=== PATIENT | female | born 1985 | race Caucasian/White ===

== ENCOUNTER 2018-05-25 06:38 | Emergency (ER) | payer OTHER ==
[2018-05-25 06:57] VITALS: O2SAT 96
[2018-05-25] MEDS ORDERED: XYLOCAINE 2% HCL 20 ML MDV ONE ×2 (07:32→07:37)
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
[2018-05-25] MEDS ORDERED: TYLENOL 325 MG PO STA (07:56)
[2018-05-25] MEDS ORDERED: TYLENOL 325 MG ONE (08:00)
[2018-05-25 08:03] VITALS: BP 110/81; PULSE 82
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
== END 2018-05-25 08:13 | disposition home or self-care (01) ==
LOC: ED 06:38
DX: S61.215A Laceration without foreign body of left ring finger without damage to nail, initial encounter (principal); I10 Essential (primary) hypertension; Y08.89XA Assault by other specified means, initial encounter; Z79.899 Other long term (current) drug therapy
CPT/HCPCS: 12001; 73130; 99284; A9270-GY

== ENCOUNTER 2019-08-19 20:36 | Emergency (ER) | payer OTHER ==
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
[2019-08-19 21:04] LABS: Appearance CLOUDY (CLEAR); Bacteria FEW /HPF (NEGATIVE); Bilirubin NEGATIVE (NEGATIVE); Blood SMALL Ery/ul (0-5); Epithelial Cells RARE /HPF (FEW); Glucose NEGATIVE (NEGATIVE); Ketones NEGATIVE (NEGATIVE); Leukocyte Esterase LARGE (NEGATIVE); Mucus SLIGHT /HPF (NEGATIVE); Nitrite NEGATIVE (NEGATIVE); Protein,Urine Dip NEGATIVE (Negative); Specific Gravity 1.029 (1.005-1.025); Urobilinogen NEGATIVE mg/dL (0-1)
[2019-08-19] MEDS ORDERED: Rocephin 1000 MG INJ IM ONE (21:06)
[2019-08-19] MEDS ORDERED: Zithromax 250 MG TABLET PO ONE (21:06)
[2019-08-19] MEDS ORDERED: Zithromax 250 MG TABLET ONE (21:12)
[2019-08-19] MEDS ORDERED: XYLOCAINE 1% HCL 20 ML MDV IJ ONE (21:12)
[2019-08-19] MEDS ORDERED: Rocephin 1000 MG INJ ONE (21:12)
[2019-08-19] MEDS ORDERED: BACTRIM DS TABLET PO STA (21:13)
[2019-08-19] MEDS ORDERED: BACTRIM DS TABLET PO ONE (21:16)
[2019-08-19 21:42] VITALS: BP 136/98; PULSE 101; O2SAT 98
== END 2019-08-19 21:44 | disposition home or self-care (01) ==
LOC: ED 20:36
DX: Z20.2 Contact with and (suspected) exposure to infections with a predominantly sexual mode of transmission (principal); N39.0 Urinary tract infection, site not specified; Z72.0 Tobacco use
CPT/HCPCS: 81001; 87086; 96372; 99284; J0696; A9270-GY

== ENCOUNTER 2019-10-21 05:30 | Emergency (ER) | payer OTHER ==
--- NOTE | 2019-10-21 05:51 | ERPHSYRPT ---
- History of Present Illness Source: patient Exam Limitations: no limitations Timing/Duration: day(s) (5), gradual onset, worse Severity of Dyspnea-Max: moderate Severity of Dyspnea-Current: moderate Possible Cause: no prior episodes Modifying Factors: Improves With: coughing Associated Symptoms: cough, chest pain/discomfort, fever, loss of appetite, weakness, chills Hx Tetanus, Diphtheria Vaccination/Date Given: No Hx Influenza Vaccination/Date Given: No Hx Pneumococcal Vaccination/Date Given: No <EDA MILAN - Last Filed: 10/21/19 06:52> <HEYDI POWERS - Last Filed: 10/21/19 08:54> - History of Present Illness Time Seen by Provider: 10/21/19 05:51 Physician History: This is a 34-year-old white female who smokes has had a history of ovarian cancer in the past and has had a total abdominal hysterectomy. She is had a history of anxiety, migraines, hypertension and rheumatoid arthritis she takes lisinopril for high blood pressure. Patient presents with 5-day history of worsening shortness of breath with associated chills, sweats, headache, myalgias and arthralgias and chest pain. He also has had a cough and weakness and loss of taste and smell. Patient has no known direct exposure with anyone positive for the COVID-19 virus. However, she does work at a [employer] plant and 16 people were sent home and tested for the COVID-19 virus. She does not know the results of those tests. (EDA MILAN) Allergies/Adverse Reactions: Penicillins Allergy (Intermediate, Verified 10/21/19 06:00) Blisters Home Medications: Lisinopril 20 mg [Zestril 20 MG] 20 mg PO DAILY 08/19/19 [History] Travel Risk - International Travel Have you traveled outside of the country in past 3 weeks: No - Coronavirus Screening Are you exhibiting any of the following symptoms?: Yes Symptoms: Fever, Cough: New Onset, Shortness of Breath, Vomiting/Diarrhea, Loss of Taste or Smell, Headaches/Body Aches/Fatigue <EDA MILAN - Last Filed: 10/21/19 06:52> - Review of Systems Constitutional: Fever, Chills, Weakness Eyes: No Symptoms Ears, Nose, & Throat: No Symptoms Respiratory: Cough, Dyspnea, No Stridor, No Wheezing Cardiac: Chest Pain Abdominal/Gastrointestinal: Nausea, Vomiting, No Abdominal Pain, No Diarrhea Genitourinary Symptoms: No Symptoms Musculoskeletal: Arthralgias, Myalgias Skin: No Symptoms Neurological: No Symptoms Psychological: No Symptoms Endocrine: No Symptoms Hematologic/Lymphatic: No Symptoms Immunological/Allergic: No Symptoms All Other Systems: Reviewed and Negative <EDA MILAN - Last Filed: 10/21/19 06:52> - Past Medical History Pertinent Past Medical History: Yes Neurological History: Migraines ENT History: No Pertinent History Cardiac History: Hypertension Respiratory History: No Pertinent History Endocrine Medical History: No Pertinent History Musculoskeletal History: Rheumatoid Arthritis GI Medical History: No Pertinent History History: No Pertinent History Psycho-Social History: Anxiety Female Reproductive Disorders: Other, Ovarian Cancer Other Medical History: OVARIAN CA, HYSTERECTOMY. - Past Surgical History Past Surgical History: Yes Neuro Surgical History: No Pertinent History Cardiac: No Pertinent History Respiratory: No Pertinent History Gastrointestinal: Appendectomy Musculoskeletal: No Pertinent History Female Surgical History: Hysterectomy, Other Other Surgical History: LEFT OVARY REMOVED - Social History Smoking Status: Current every day smoker How long have you smoked: 7 years Exposure to second hand smoke: Yes Drug Use: none Patient Lives Alone: No <EDA MILAN - Last Filed: 10/21/19 06:52> - Physical Exam General Appearance: mild distress, alert, anxiety Eye Exam: PERRL/EOMI, eyes nml inspection Ears, Nose, Throat Exam: hearing grossly normal, normal ENT inspection, normal pharynx Neck Exam: normal inspection, non-tender, supple, full range of motion Respiratory Exam: normal breath sounds, chest tenderness, lungs clear, airway intact, No respiratory distress, No rhonchi, No wheezing, No stridor Cardiovascular/Chest Exam: normal heart sounds, regular rate/rhythm, normal peripheral pulses Abdominal/Gastrointestinal Exam: soft, normal bowel sounds, No tenderness Rectal Exam: not done Extremity Exam: non-tender, normal range of motion, normal inspection Neurologic Exam: alert, oriented x 3, cooperative, corporate compliance director II-XII nml as tested, normal mood/affect, nml cerebellar function, nml station & gait, sensation nml Skin Exam: normal color, warm, dry Lymphatic Exam: No adenopathy SpO2 Interpretation: normal O2 Delivery: Room Air <EDA MILAN - Last Filed: 10/21/19 06:52> - Nursing Vital Signs Nursing Vital Signs: Initial Vital Signs Temperature 97.7 F 10/21/19 05:45 Pulse Rate 75 10/21/19 05:45 Respiratory Rate 18 10/21/19 05:45 Blood Pressure 158/100 10/21/19 05:45 O2 Sat by Pulse Oximetry 97 10/21/19 05:45 Pain Scale Pain Intensity 0 - Course Nursing assessment & vital signs reviewed: Yes EKG Interpreted by Me: RATE (61), Sinus Rhythm, NORMAL AXIS, NORMAL INTERVALS, NORMAL QRS, Other (No comparison EKG available) <EDA MILAN - Last Filed: 10/21/19 06:52> - Radiology Exams Chest X-ray Interpretation: Interpreted by me (No effusion, no infiltrate, no consolidation, normal bony thorax) <HEYDI POWERS - Last Filed: 10/21/19 08:54> Ordered Tests: Active Orders 24 hr Category Date Time Status Radio Interference Supervisor STAT Care 10/21/19 06:32 Active EKG-ER Only STAT Care 10/21/19 06:29 Active ISDH COVID Approval STAT Care 10/21/19 06:30 Completed IV Insertion STAT Care 10/21/19 06:29 Active Isolation, Initiate & Maintain STAT Care 10/21/19 06:30 Active Pulse Oximetry (ED) ROUTINE Care 10/21/19 06:32 Active CHEST 1 VIEW (PORTABLE) Stat Exams 10/21/19 06:06 Taken BLOOD CULTURE Stat Lab 10/21/19 06:30 Received CBC W DIFF Stat Lab 10/21/19 06:30 Completed CMP Stat Lab 10/21/19 06:30 Completed D-DIMER QUANTITATIVE Stat Lab 10/21/19 06:30 Completed Ferritin Stat Lab 10/21/19 06:30 Completed LDH-LACTATE DEHYDROGENASE Stat Lab 10/21/19 06:30 Completed Lactic Acid Stat Lab 10/21/19 06:33 Completed [place] Screen Stat Lab 10/21/19 06:30 Completed PROTIME WITH INR Stat Lab 10/21/19 06:30 Completed TROPONIN Q3H Lab 10/21/19 06:34 Completed TROPONIN Q3H Lab 10/21/19 09:45 Ordered TROPONIN Q3H Lab 10/21/19 12:45 Ordered TROPONIN Q3H Lab 10/21/19 15:45 Ordered TROPONIN Q3H Lab 10/21/19 18:45 Ordered Respiratory Therapy Assessment DAILY RT 10/21/19 08:43 Active Medication Summary Discontinued Medications Generic Name Dose Route Start Last Admin Trade Name Julia PRN Reason Stop Dose Admin Albuterol Sulfate 2.5 mg 10/21/19 08:30 10/21/19 08:40 Proventil 2.5 Mg/3 Ml Neb IH 10/21/19 08:31 2.5 mg STAT ONE Administration Albuterol Sulfate Confirm 10/21/19 08:37 Proventil 2.5 Mg/3 Ml Neb Administered 10/21/19 08:38 Dose 2.5 mg IH .STK-MED ONE Ondansetron HCl 4 mg 10/21/19 06:29 10/21/19 06:50 Zofran 4 Mg/2 Ml Vial IV 10/21/19 06:30 4 mg STAT ONE Administration Ondansetron HCl Confirm 10/21/19 06:47 Zofran 4 Mg/2 Ml Vial Administered 10/21/19 06:48 Dose 4 mg .ROUTE .STK-MED ONE Prednisone 60 mg 10/21/19 08:30 10/21/19 08:34 Deltasone 20 Mg PO 10/21/19 08:31 60 mg STAT ONE Administration Prednisone Confirm 10/21/19 08:33 Deltasone 20 Mg Administered 10/21/19 08:34 Dose 60 mg .ROUTE .STK-MED ONE Lab/Rad Data: Laboratory Result Diagrams 10/21/19 06:30 10/21/19 06:30 Laboratory Results 10/21/19 10/21/19 10/21/19 Range/Units 06:52 06:45 06:34 WBC (4.0-10.5) K/mm3 RBC (4.1-5.4) M/mm3 Hgb (12.0-16.0) gm/dl Hct (35-47) % MCV (78-100) fl MCH (26-32) pg MCHC (32-36) g/dl RDW (11.5-14.0) % Plt Count (150-450) K/mm3 MPV (7.5-11.0) fl Gran % (36.0-66.0) % Eos # (Auto) (0-0.5) Absolute Lymphs (auto) (1.0-4.6) Absolute Monos (auto) (0.0-1.3) Lymphocytes % (24.0-44.0) % Monocytes % (0.0-12.0) % Eosinophils % (0.00-5.0) % Basophils % (0.0-0.4) % Absolute Granulocytes (1.4-6.9) Basophils # (0-0.4) PT (9.95-12.35) SECONDS INR (0.8-3.0) D-Dimer (215-500) ng/mL Sodium (137-145) mmol/L Potassium (3.5-5.1) mmol/L Chloride (98-107) mmol/L Carbon Dioxide (22-30) mmol/L Anion Gap (5-15) MEQ/L BUN (7-17) mg/dL Creatinine (0.52-1.04) mg/dL Estimated GFR ML/MIN Glucose (74-106) mg/dL Lactic Acid (0.4-2.0) Calcium (8.4-10.2) mg/dL Ferritin (6.24-137) ng/mL Total Bilirubin (0.2-1.3) mg/dL AST (14-36) U/L ALT (0-35) U/L Alkaline Phosphatase (38-126) U/L Lactate Dehydrogenase (120-246) U/L Troponin I < 0.012 (0.000-0.034) ng/mL Serum Total Protein (6.3-8.2) g/dL Albumin (3.5-5.0) g/dL Monoscreen (Negative) Influenza Type A Ag NEGATIVE (NEGATIVE) Influenza Type B Ag NEGATIVE (NEGATIVE) RSV (PCR) NEGATIVE (Negative) SARS-CoV-2 (PCR) NEGATIVE (NEGATIVE) Group A Strep Antibody NOT DETECTED (NEGATIVE) 10/21/19 10/21/19 10/21/19 Range/Units 06:33 06:30 06:30 WBC (4.0-10.5) K/mm3 RBC (4.1-5.4) M/mm3 Hgb (12.0-16.0) gm/dl Hct (35-47) % MCV (78-100) fl MCH (26-32) pg MCHC (32-36) g/dl RDW (11.5-14.0) % Plt Count (150-450) K/mm3 MPV (7.5-11.0) fl Gran % (36.0-66.0) % Eos # (Auto) (0-0.5) Absolute Lymphs (auto) (1.0-4.6) Absolute Monos (auto) (0.0-1.3) Lymphocytes % (24.0-44.0) % Monocytes % (0.0-12.0) % Eosinophils % (0.00-5.0) % Basophils % (0.0-0.4) % Absolute Granulocytes (1.4-6.9) Basophils # (0-0.4) PT 12.4 H (9.95-12.35) SECONDS INR 1.10 (0.8-3.0) D-Dimer < 215 L (215-500) ng/mL Sodium (137-145) mmol/L Potassium (3.5-5.1) mmol/L Chloride (98-107) mmol/L Carbon Dioxide (22-30) mmol/L Anion Gap (5-15) MEQ/L BUN (7-17) mg/dL Creatinine (0.52-1.04) mg/dL Estimated GFR ML/MIN Glucose (74-106) mg/dL Lactic Acid 0.9 (0.4-2.0) Calcium (8.4-10.2) mg/dL Ferritin (6.24-137) ng/mL Total Bilirubin (0.2-1.3) mg/dL AST (14-36) U/L ALT (0-35) U/L Alkaline Phosphatase (38-126) U/L Lactate Dehydrogenase (120-246) U/L Troponin I (0.000-0.034) ng/mL Serum Total Protein (6.3-8.2) g/dL Albumin (3.5-5.0) g/dL Monoscreen NEGATIVE (Negative) Influenza Type A Ag (NEGATIVE) Influenza Type B Ag (NEGATIVE) RSV (PCR) (Negative) SARS-CoV-2 (PCR) (NEGATIVE) Group A Strep Antibody (NEGATIVE) 10/21/19 10/21/19 Range/Units 06:30 06:30 WBC 6.2 (4.0-10.5) K/mm3 RBC 4.10 (4.1-5.4) M/mm3 Hgb 13.1 (12.0-16.0) gm/dl Hct 40.4 (35-47) % MCV 98.5 (78-100) fl MCH 32.0 (26-32) pg MCHC 32.4 (32-36) g/dl RDW 12.3 (11.5-14.0) % Plt Count 212 (150-450) K/mm3 MPV 11.7 H (7.5-11.0) fl Gran % 65.5 (36.0-66.0) % Eos # (Auto) 0.13 (0-0.5) Absolute Lymphs (auto) 1.43 (1.0-4.6) Absolute Monos (auto) 0.55 (0.0-1.3) Lymphocytes % 23.3 L (24.0-44.0) % Monocytes % 8.9 (0.0-12.0) % Eosinophils % 2.1 (0.00-5.0) % Basophils % 0.2 (0.0-0.4) % Absolute Granulocytes 4.03 (1.4-6.9) Basophils # 0.01 (0-0.4) PT (9.95-12.35) SECONDS INR (0.8-3.0) D-Dimer (215-500) ng/mL Sodium 141 (137-145) mmol/L Potassium 3.4 L (3.5-5.1) mmol/L Chloride 108 H (98-107) mmol/L Carbon Dioxide 26 (22-30) mmol/L Anion Gap 10.6 (5-15) MEQ/L BUN 12 (7-17) mg/dL Creatinine 0.81 (0.52-1.04) mg/dL Estimated GFR > 60.0 ML/MIN Glucose 83 (74-106) mg/dL Lactic Acid (0.4-2.0) Calcium 9.4 (8.4-10.2) mg/dL Ferritin 25.1 (6.24-137) ng/mL Total Bilirubin 0.40 (0.2-1.3) mg/dL AST 36 (14-36) U/L ALT 39 H (0-35) U/L Alkaline Phosphatase 92 (38-126) U/L Lactate Dehydrogenase 201 (120-246) U/L Troponin I (0.000-0.034) ng/mL Serum Total Protein 7.5 (6.3-8.2) g/dL Albumin 4.2 (3.5-5.0) g/dL Monoscreen (Negative) Influenza Type A Ag (NEGATIVE) Influenza Type B Ag (NEGATIVE) RSV (PCR) (Negative) SARS-CoV-2 (PCR) (NEGATIVE) Group A Strep Antibody (NEGATIVE) - Progress Air Movement: good Blood Culture(s) Obtained: Yes Counseled pt/family regarding: lab results, diagnosis, need for follow-up, rad results <EDA MILAN - Last Filed: 10/21/19 06:52> - Progress Progress: improved <HEYDI POWERS - Last Filed: 10/21/19 08:54> - Progress Progress Note: 10/21/19 06:28 Chest x-ray reveals no acute pulmonary process 10/21/19 06:52 I transferred care to Dr. Heydi Powers at shift change. I reviewed the patient history and condition with him. I also gave him report on the laboratory data, x-ray studies pending. Will provide the final disposition. (EDA MILAN) Patient endorsed to Dr. Powers at approximately 7 AM. Patient reassessed. Patient continues to cough. It appears patient has faint expiratory wheezing at bilateral bases more so on the left. COVID testing negative. Chest x-ray nonremarkable. RSV flu negative as well. D-dimer negative. Patient received DuoNeb in our ED. Patient feels better. Prednisone administered. Prescriptions for the same provided. No indication for further work-up. Will discharge home. Patient ambulated in our ED. O2 sat remained stable and within normal limits. She had no complaints. Patient agrees to follow-up with her primary care doctor within 48 hours for reevaluation. 10/21/19 08:50 (HEYDI POWERS) <EDA MILAN - Last Filed: 10/21/19 06:52> - Departure Departure Disposition: Home Critical Care Time: No <HEYDI POWERS - Last Filed: 10/21/19 08:54> - Departure Clinical Impression: Cough, Bronchitis, Viral syndrome Condition: Stable Referrals: BONILLA ABURTO [Primary Care Provider] - Additional Instructions: Discharge/Care Plan DASH ROTHMAN was seen on 10/21/19 in the Emergency Room. The patient was counseled regarding Diagnosis,Lab results, Imaging studies, need for follow up and when to return to the Emergency Room. Prescriptions given: Discharge Note I have spoken with the patient and/or caregivers. I have explained the patient's condition, diagnosis and treatment plan based on the information available to me at this time. I have answered the patient's and/or caregiver's questions and addressed any concerns. The patient and/or caregivers have as good understanding of the patient's diagnosis, condition and treatment plan as can be expected at this point. The vital signs have been stable. The patient's condition is stable and appropriate for discharge from the emergency department. The patient will pursue further outpatient evaluation with the primary care physician or other designated or consulting physician as outlined in the discharge instructions. The patient and/or caregivers are agreeable to this plan of care and follow-up instructions have been explained in detail. The patient and/or caregivers have received these instruction. The patient/and or caregivers are aware that any significant change in condition or worsening of symptoms should prompt an immediate return to this or the closest emergency department or call 911. Forms: Work/School Release Form Prescriptions: Prednisone 10 mg [Deltasone 10 mg] 40 mg PO DAILY 3 Days #12 tablet Albuterol 8 gm Mdi Hfa [Ventolin Hfa MDI] 8 gm IH Q4H #1 [email or web address]
[2019-10-21] MEDS ORDERED: Zofran 4 MG/2 ML VIAL IV ONE (06:29)
[2019-10-21] MEDS ORDERED: Zofran 4 MG/2 ML VIAL ONE (06:47)
[2019-10-21 07:04] LABS: Absolute Neutrophil Ct (ANC) 4.03 (1.4-6.9); BASOPHIL % 0.2 % (0.0-0.4); Basophil (Absolute #) 0.01 (0-0.4); Eosinophil % 2.1 % (0.00-5.0); Eosinophil (Absolute #) 0.13 (0-0.5); Hematocrit 40.4 % (35-47); Hemoglobin 13.1 gm/dl (12.0-16.0); Lymphocyte (Absolute #) 1.43 (1.0-4.6); Lymphocytes % 23.3 % (24.0-44.0); Mean Cell Volume 98.5 fl (78-100); Mean Corpuscular Hgb Concent. 32.4 g/dl (32-36); Mean Platelet Volume 11.7 fl (7.5-11.0); Monocyte (Absolute #) 0.55 (0.0-1.3); Monocytes % 8.9 % (0.0-12.0); Neutrophil % 65.5 % (36.0-66.0); Platelet Count 212 K/mm3 (150-450); Red Cell Distribution Width 12.3 % (11.5-14.0); White Blood Count 6.2 K/mm3 (4.0-10.5)
[2019-10-21 07:15] LABS: PROTIME 12.4 SECONDS (9.95-12.35)
[2019-10-21 07:23] LABS: D-DIMER QUANTITATIVE < 215 ng/mL (215-500)
[2019-10-21 07:33] LABS: INFLUENZA A NEGATIVE (NEGATIVE); INFLUENZA B NEGATIVE (NEGATIVE); RESPIRATORY SYNCTIAL VIRUS NEGATIVE (Negative)
[2019-10-21 07:57] LABS: ALBUMIN 4.2 g/dL (3.5-5.0); ALKALINE PHOSPHATASE 92 U/L (38-126); ANION GAP 10.6 MEQ/L (5-15); BLOOD UREA NITROGEN 12 mg/dL (7-17); CHLORIDE 108 mmol/L (98-107); Calcium 9.4 mg/dL (8.4-10.2); Carbon Dioxide 26 mmol/L (22-30); Creatinine 1 0.81 mg/dL (0.52-1.04); Ferritin 25.1 ng/mL (6.24-137); Glucose 83 mg/dL (74-106); LDH-LACTATE DEHYDROGENASE 201 U/L (120-246); Potassium 3.4 mmol/L (3.5-5.1); SGOT/AST 36 U/L (14-36); SGPT/ALT 39 U/L (0-35); SODIUM 141 mmol/L (137-145); Total Protein 7.5 g/dL (6.3-8.2)
[2019-10-21] MEDS ORDERED: PROVENTIL 2.5 MG/3 ML NEB IH ONE ×2 (08:30→08:37)
[2019-10-21] MEDS ORDERED: DELTASONE 20 MG PO ONE (08:30)
[2019-10-21] MEDS ORDERED: DELTASONE 20 MG ONE (08:33)
[2019-10-21 08:47] VITALS: O2SAT 99
--- NOTE | 2019-10-21 09:10 | XRAY ---
Indication: Short of breath. Comparison: None Portable apical lordotic chest demonstrates normal heart, lungs, and bony thorax with incidental mediastinal/right hilar calcified nodes.
[2019-10-21 09:28] VITALS: BP 133/83; PULSE 67
== END 2019-10-21 09:40 | disposition home or self-care (01) ==
LOC: ED 05:30
DX: J40 Bronchitis, not specified as acute or chronic (principal); R50.9 Fever, unspecified; R53.83 Other fatigue; I10 Essential (primary) hypertension; Z20.828 Contact with and (suspected) exposure to other viral communicable diseases; Z79.899 Other long term (current) drug therapy; R43.8 Other disturbances of smell and taste; R51 Headache; F17.210 Nicotine dependence, cigarettes, uncomplicated
CPT/HCPCS: 36000; 36415; 71045; 80053; 82728; 83605; 83615; 84484; 85025; 85379; 85610; 86140; 86308; 87040; 87631; 87651; 93005; 93041; 94640; 94760; 96374; 99284; U0003; J2405; J7609; A9270-GY